=== PATIENT | female | born 1980 | race Caucasian/White ===

== ENCOUNTER 2017-12-22 14:38 | Emergency (ER) | payer MEDICAID ==
[~2017-12-22] VITALS: Ht 160 cm; Wt 74.8 kg
[2017-12-22 14:39] VITALS: Ht 160 cm; Wt 74.8 kg
[2017-12-22 15:12] VITALS: BP 138/88
== END 2017-12-22 15:12 | disposition home or self-care (01) ==
LOC: ED 14:38
DX: Z45.2 Encounter for adjustment and management of vascular access device (principal); Z13.89 Encounter for screening for other disorder; I10 Essential (primary) hypertension; E11.9 Type 2 diabetes mellitus without complications